=== PATIENT | female | born 1950 | race Caucasian/White ===

== ENCOUNTER 2016-05-14 18:27 | Emergency (ER) | payer MEDICARE ==
[2016-05-14 19:48] VITALS: TEMP 98
--- NOTE | 2016-05-14 22:10 | ED.PDOC ---
History of Present Illness - General Chief Complaint: General Stated Complaint: muffled hearing Time Seen by Provider: 05/14/16 19:10 Source: patient, RN notes reviewed, Vital Signs reviewed Exam Limitations: no limitations - History of Present Illness Initial Comments: This 65 y/o female has been feeling tired for the past several weeks. Over the past few days, she has noticed that she has faint ringing in her ears. She is very concerned that there may be something wrong. Timing/Duration: getting worse Severity: moderate Improving Factors: nothing Worsening Factors: nothing Associated Symptoms: malaise Allergies/Adverse Reactions: Allergies NO KNOWN ALLERGY Allergy (Verified 04/03/16 19:53) Home Medications: Ambulatory Orders NK [NK] 04/03/16 Review of Systems - Review of Systems Constitutional: States: malaise EENTM: States: other - ringing in ears Respiratory: States: no symptoms reported Cardiology: States: no symptoms reported Gastrointestinal/Abdominal: States: no symptoms reported Genitourinary: States: no symptoms reported Musculoskeletal: States: no symptoms reported Skin: States: no symptoms reported Neurological: States: anxiety Endocrine: States: no symptoms reported Hematologic/Lymphatic: States: no symptoms reported All other Systems: Reviewed and Negative Past Medical History (General) - Patient Medical History Hx Seizures: No Hx Asthma: No Hx of COPD: No Hx Hypertension: No Surgical History: no surgical history - Vaccination History Hx Influenza Vaccination: No Hx Pneumococcal Vaccination: No Family Medical History - Family History Father Family History: Unknown Physical Exam - Physical Exam General Appearance: Alert, Anxious, Comfortable, No apparent distress Eye Exam: bilateral normal Ears, Nose, Throat: hearing grossly normal, abnormal TM (R) - Fluid behind TM, nasal congestion Neck: non-tender, full range of motion, supple, normal inspection Respiratory: lungs clear, normal breath sounds, no respiratory distress, no accessory muscle use Cardiovascular/Chest: regular rate, rhythm, no edema, no gallop, no murmur Gastrointestinal/Abdominal: non tender, soft, no organomegaly, no pulsatile mass Extremity: normal range of motion, non-tender, normal inspection Neurologic: alert, normal mood/affect, oriented x 3 Skin Exam: normal color, warm/dry Progress - Results/Orders Results/Orders: 05/14/16 19:45 Temperature 98.0 F Pulse Rate [LA] 104 H Respiratory 20 Rate Blood Pressure 172/104 [LEFT BRACHIAL] O2 Sat by Pulse 95 Oximetry Laboratory Results WBC 6.2 K/mm3 (4.8-10.8) 05/14/16 20:15 RBC 5.01 M/mm3 (4.20-5.40) 05/14/16 20:15 Hgb 15.8 gm/dL (12.0-16.0) 05/14/16 20:15 Hct 45.9 % (36.0-47.0) 05/14/16 20:15 MCV 91.6 fl (81.0-99.0) 05/14/16 20:15 MCH 31.6 pg (27.0-31.0) H 05/14/16 20:15 MCHC 34.5 g/dL (33.0-37.0) 05/14/16 20:15 RDW 12.9 % (11.5-14.5) 05/14/16 20:15 Plt Count 276 K/mm3 (130-400) 05/14/16 20:15 MPV 8.1 fl (7.40-10.4) 05/14/16 20:15 Absolute Neuts (auto) 3.70 K/uL (1.8-6.8) 05/14/16 20:15 Absolute Lymphs (auto) 2.10 K/uL (1.0-3.4) 05/14/16 20:15 Absolute Monos (auto) 0.40 K/uL (0.2-0.8) 05/14/16 20:15 Absolute Eos (auto) 0.00 K/uL (0.0-0.4) 05/14/16 20:15 Absolute Basos (auto) 0.00 K/uL (0.0-0.1) 05/14/16 20:15 Neutrophils % 59.0 % (42.0-78.0) 05/14/16 20:15 Lymphocytes % 34.1 % (20.0-50.0) 05/14/16 20:15 Monocytes % 5.9 % (2.0-9.0) 05/14/16 20:15 Eosinophils % 0.5 % (1.0-5.0) L 05/14/16 20:15 Basophils % 0.5 % (0.0-2.0) 05/14/16 20:15 Sodium 138 mmol/L (135-145) 05/14/16 20:15 Potassium 4.0 mmol/L (3.6-5.0) 05/14/16 20:15 Chloride 103 mmol/L (101-111) 05/14/16 20:15 Carbon Dioxide 28 mmol/L (21-31) 05/14/16 20:15 Anion Gap 11.0 (12-18) L 05/14/16 20:15 BUN 8 mg/dL (7-18) 05/14/16 20:15 Creatinine 0.67 mg/dL (0.6-1.3) 05/14/16 20:15 BUN/Creatinine Ratio 11.9 (10-20) 05/14/16 20:15 Random Glucose 113 mg/dL (70-105) H 05/14/16 20:15 Serum Osmolality 274.8 mOsm/L (275-295) L 05/14/16 20:15 Calcium 10.3 mg/dL (8.4-10.2) H 05/14/16 20:15 TSH 3.14 uIU/mL (0.34-5.60) 05/14/16 20:15 Departure - Departure Clinical Impression: Environmental allergies, Tinnitus of both ears Time of Disposition: 22:16 Disposition: Discharge to Home or Self Care Condition: Excellent Departure Forms: ED Discharge - Pt. Copy, Patient Portal Self Enrollment Instructions: DI for Tinnitus, How to Reduce Environmental Allergens Diet: resume usual diet Referrals: Srinivasa Tomlinson MD [Primary Care Provider] - 1-2 Weeks Home Medications: Ambulatory Orders NK [NK] 04/03/16 Additional Instructions: Over the counter meds: Zyrtec 10 mg Daily Flonase Nasal [place] 2 sprays to each nostril daily Stay well-hydrated. Keep F/U appointment with ENT.
[2016-05-14 23:05] VITALS: BP 162/84; O2SAT 96
== END 2016-05-14 22:50 | disposition home or self-care (01) ==
LOC: ER 18:27
DX: H93.13 Tinnitus, bilateral (principal); T78.49XA Other allergy, initial encounter

== ENCOUNTER → 2016-05-18 | Outpatient (CLI) | payer MEDICARE | LOC: GMAB 17:08 | PROVIDERS: ATTEND Family Medicine | DX: H93.19 Tinnitus, unspecified ear (principal) ==

== ENCOUNTER → 2016-06-02 | Outpatient (CLI) | payer MEDICARE ==
--- NOTE | 2016-06-02 09:17 | MRI ---
EXAM DESCRIPTION: Brain MRI. CLINICAL HISTORY: Acute vertigo COMPARISON: None. TECHNIQUE: Multiplanar, multisequence MR images were acquired without IV contrast. FINDINGS: The midline structures are unremarkable on today's study. Gomez and white matter is unremarkable on today's study.No intracranial mass effect, hydrocephalus, midline shift, hemorrhage, extra-axial fluid collection, abnormal vascular flow void, or restricted diffusion is seen. Calvarial signal is intact. Mastoid air cells are clear. Patchy bilateral ethmoid air cell mucosal thickening noted period air-fluid levels seen within the right maxillary sinus. IMPRESSION: Minimal sinus disease noted. No intracranial abnormality. Electronically signed by: Dom Castillo MD 06/02/2016 09:16
--- NOTE | 2016-06-02 09:49 | US ---
EXAM DESCRIPTION: US CAROTID DOPPLER BILATERAL CLINICAL HISTORY: STENOSIS COMPARISON: None Available. TECHNIQUE: Carotid Doppler ultrasound was performed. [employer] grayscale, spectral images and color Doppler images were saved to the patient's medical record. FINDINGS: Soft plaque noted within bilateral carotid bulbs, left greater than right. The peak systolic velocity of the right common carotid artery is 66, the left is 75. The peak systolic velocity of the right internal carotid artery is 81, the left is 81. Bilateral vertebral arteries demonstrate antegrade flow. IMPRESSION: Today's exam demonstrates atherosclerotic plaque within bilateral carotid arteries. There is no abnormal ratio or velocity. The findings are therefore compatible with stenosis measuring 1-49% within bilateral carotid systems. Electronically signed by: Dom Castillo MD 06/02/2016 09:47
== END | disposition home or self-care (01) ==
LOC: MRI 07:04
PROVIDERS: ATTEND Family Medicine
DX: I65.22 Occlusion and stenosis of left carotid artery (principal); H81.13 Benign paroxysmal vertigo, bilateral; R51 Headache; H53.459 Other localized visual field defect, unspecified eye; H93.19 Tinnitus, unspecified ear